=== PATIENT | female | born 1980 | race Two or more races ===

== ENCOUNTER 2018-01-05 16:43 | Emergency (ER) | payer OTHER ==
[~2018-01-05] VITALS: Ht 167.6 cm; Wt 95.4 kg
[2018-01-05 18:54] LABS: BASOPHILS # (AUTO) 0.05 x10^3/uL (0-0.1); BASOPHILS % (AUTO) 1 % (0-1); EOSINOPHILS # (AUTO) 0.26 x10^3/uL (0-0.4); EOSINOPHILS % (AUTO) 3 % (1-7); LYMPHOCYTES # (AUTO) 3.74 x10^3/uL (1-3.4); LYMPHOCYTES % (AUTO) 41 % (22-44); MD NO; MEAN CORPUSCULAR HEMOGLOBIN 30.7 pg (27.0-34.8); MEAN CORPUSCULAR HGB CONC 34.5 g/dL (32.4-35.8); MEAN CORPUSCULAR VOLUME 89.2 fL (80-100); MEAN PLATELET VOLUME 7.9 fL (7.4-10.4); MONOCYTES # (AUTO) 0.56 x10^3/uL (0.2-0.8); MONOCYTES % (AUTO) 6 % (2-9); NEUTROPHILS % (AUTO) 50 % (42-75); PLATELET COUNT 392 x10^3/uL (130-400); RED BLOOD COUNT 4.21 x10^6/uL (3.82-5.3); RED CELL DISTRIBUTION WIDTH 12.4 % (9.6-15.2)
[2018-01-05] MEDS ORDERED: LINA5TAB PO (18:55)
[2018-01-05] MEDS ORDERED: METF500T5 PO (18:55)
[2018-01-05] MEDS ORDERED: LISI-167 PO (18:55)
[2018-01-05] MEDS ORDERED: INSU100V8 SQ (18:55)
[2018-01-05 18:58] LABS: ALBUMIN 2.3 g/dL (3.4-5.0); ANION GAP 9 mmol/L (5-15); CALCIUM 8.6 mg/dL (8.5-10.1); CHLORIDE 111 mmol/L (98-107); CREATININE 1.49 mg/dL (0.55-1.02)
[2018-01-05 19:46] VITALS: BP 162/108
== END 2018-01-05 19:49 | disposition home or self-care (01) ==
LOC: ED 19:10
DX: R60.0 Localized edema (principal); E11.65 Type 2 diabetes mellitus with hyperglycemia; N28.9 Disorder of kidney and ureter, unspecified; I10 Essential (primary) hypertension; Z79.899 Other long term (current) drug therapy; Z79.84 Long term (current) use of oral hypoglycemic drugs
CPT/HCPCS: 36415; 80048; 82040; 84703; 85025; 99285

== ENCOUNTER → 2018-01-05 | Outpatient (CLI) | payer OTHER ==
[~2018-01-05] MED LIST: INSU100V8 SQ; LINA5TAB PO; LISI-167 PO; METF500T5 PO
== END | disposition home or self-care (01) ==
LOC: RAD 16:38
PROVIDERS: ATTEND Family Medicine
DX: Z02.9 Encounter for administrative examinations, unspecified (principal)